=== PATIENT | male | born 1975 | race Caucasian/White ===

== ENCOUNTER 2024-08-10 06:43 | Emergency (ER) | payer OTHER ==
[2024-08-10] MEDS ORDERED: OLANZapine 10 MG Orally-Disinteg TAB PO ONE ×2 (07:45→15:30)
[2024-08-10 07:55] LABS: HEMATOCRIT 50.6 % (42.0-52.0); MEAN CELL VOLUME 85 fl (80.0-100.0); MEAN CORPUSCULAR HEMOGLOBIN 31 pg (27-31); MEAN CORPUSCULAR HGB CONC 36 g/dl (33.0-37.0); MEAN PLATELET VOLUME 10.7 fl (7.4-10.4); PLATELET COUNT 291 K/mm3 (130-400); RED BLOOD COUNT 5.93 M/mm3 (4.20-5.60); REDCELL DISTRIBUTION WIDTH-CV 12.6 % (11.5-14.5)
[2024-08-10 07:59] LABS: HEMOGLOBIN 18.4 g/dl (13.5-18.0)
[2024-08-10 08:11] LABS: ALANINE AMINOTRANSFERASE 42 U/L (0-55); ALBUMIN 4.9 g/dL (3.5-5.0); ALCOHOL(ethanol),MEDICAL < 10 mg/dL (0-10); ALKALINE PHOSPHATASE 85 U/L (40-150); ANION GAP 15 mmol/L (7-16); AST,SGOT 49 U/L (5-34); BILIRUBIN,TOTAL 1.3 mg/dL (0.2-1.2); BLOOD UREA NITROGEN 31 mg/dL (9-21); CALCIUM 10.1 mg/dL (8.4-10.2); CHLORIDE 103 mEq/L (98-107); CREATININE, serum 1.33 mg/dL (0.72-1.25); GLUCOSE 113 mg/dL (70-99); POTASSIUM 4.1 mEq/L (3.5-4.5); SALICYLATE < 5.0 mg/dL (15.0-30.0); SODIUM 138 mEq/L (136-145); TOTAL PROTEIN 8.6 g/dl (6.2-8.1)
[2024-08-10 08:24] LABS: NEUTROPHILS 63 % (42.0-75.2)
[2024-08-10 08:25] LABS: EOSINOPHIL 2 % (0-4); LYMPHOCYTE 21 % (20.0-51.0); PLATELET ESTIMATE NORMAL (NORMAL)
[2024-08-10 08:42] LABS: TSH w REFLEX 1.062 uIU/mL (0.350-4.940)
[2024-08-10 09:25] LABS: PH 5.5 (5.0-8.5); URINE APPEARANCE CLEAR (CLEAR/HAZY); URINE BLOOD NEGATIVE (NEGATIVE); URINE COLOR Dark Yellow (YELLOW); URINE GLUCOSE NEGATIVE (NEGATIVE); URINE KETONE 1+ (NEGATIVE); URINE NITRATE NEGATIVE (NEGATIVE); URINE PROTEIN(semi-quant) 1+ (NEGATIVE)
[2024-08-10 09:31] LABS: TRICYCLIC ANTIDEPRESS URINE NEGATIVE (NEGATIVE)
[2024-08-10 09:43] LABS: COLLECTION METHOD CLEAN CATCH; URINE RBC NONE SEEN /hpf (0-2); URINE WBC 0-2 /hpf (0-2)
[2024-08-10 09:44] LABS: MUCOUS PRESENT (NOT PRESENT)
[2024-08-11] MEDS ORDERED: OLANZapine 10 MG Orally-Disinteg TAB PO SCH (09:00)
[2024-08-11] MEDS ORDERED: diazePAM 5 MG TAB PO ONE (15:00)
[2024-08-11 21:41] VITALS: TEMP 98.8
[2024-08-11] MEDS ORDERED: Mag/Al Hydrox/Simeth Susp 30 ML CUP PO ONE (22:30)
--- NOTE | 2024-08-12 07:48 | NUR ---
Patient assisted to room to shower, pt complying with security presence. Pt cooperative, completing shower and brushing teeth, assisted back to room, sitting in bed. Breakfast ordered.
--- NOTE | 2024-08-12 11:17 | NUR ---
Pt agreeable to take medication. Took medication without issue, states he is hungry - lunch ordered.
[2024-08-12 21:35] VITALS: BP 131/85; PULSE 81
== END 2024-08-12 21:35 ==
LOC: COL.ER 06:43
PROVIDERS: Emergency Medicine
DX: F23 Brief psychotic disorder (principal); F98.8 Other specified behavioral and emotional disorders with onset usually occurring in childhood and adolescence; F17.210 Nicotine dependence, cigarettes, uncomplicated; Z79.899 Other long term (current) drug therapy